=== PATIENT | female | born 1990 | race Caucasian/White ===

== ENCOUNTER 2018-06-12 22:25 | Inpatient (IN) | payer OTHER ==
[~2018-06-12] VITALS: Ht 162.6 cm; Wt 86.3 kg
[2018-06-12 22:30] VITALS: BP 117/64
[2018-06-13] MEDS ORDERED: OXYTOCIN 30U/ 0.9% NaCL 500ML 500 ML IV ONE (00:11)
[2018-06-13] MEDS ORDERED: AMPICILLIN 2 GM in SODIUM CHLORIDE 0.9% 100 ML IVPB STA (00:15)
[2018-06-13 00:28] LABS: BASOPHILS # (AUTO) 0.02 x10^3/uL (0-0.1); BASOPHILS % (AUTO) 0 % (0-1); EOSINOPHILS # (AUTO) 0.06 x10^3/uL (0-0.4); EOSINOPHILS % (AUTO) 1 % (1-7); LYMPHOCYTES # (AUTO) 1.47 x10^3/uL (1-3.4); LYMPHOCYTES % (AUTO) 15 % (22-44); MD NO; MEAN CORPUSCULAR HEMOGLOBIN 32.3 pg (27.0-34.8); MEAN CORPUSCULAR VOLUME 94.8 fL (80-100); MEAN PLATELET VOLUME 9.1 fL (7.4-10.4); MONOCYTES # (AUTO) 0.65 x10^3/uL (0.2-0.8); MONOCYTES % (AUTO) 7 % (2-9); NEUTROPHILS % (AUTO) 78 % (42-75); PLATELET COUNT 188 x10^3/uL (130-400); RED BLOOD COUNT 3.85 x10^6/uL (3.82-5.3); RED CELL DISTRIBUTION WIDTH 15.5 % (9.6-15.2)
[2018-06-13] MEDS ORDERED: FENTANYL PF 100 MCG/2ML IVPush PRN (00:30)
[2018-06-13] MEDS ORDERED: FENTANYL PF 100 MCG/2ML IV PRN (00:30)
[2018-06-13] MEDS ORDERED: PLEASE ENTER WEIGHT MC SCH (00:30)
[2018-06-13] MEDS ORDERED: LIDOCAINE/PF 1%, 30ML ONE (00:47)
[2018-06-13] MEDS ORDERED: OXYTOCIN 30U/ 0.9% NaCL 500ML 500 ML ONE ×2 (02:26→23:49)
[2018-06-13] MEDS ORDERED: OXYTOCIN 30U/ 0.9% NaCL 500ML 500 ML IV PRN (02:56)
[2018-06-13] MEDS: AMPICILLIN 1 GM in SODIUM CHLORIDE 0.9% 100 ML IVPB SCH ×4 (05:00→17:00)
[2018-06-13] MEDS: LACTATED RINGERS 1,000 ML IV SCH ×2 (06:38→08:04)
[2018-06-13] MEDS ORDERED: FENTANYL/BUPIV./NS/PF 250 ML EPIDCONT SCH ×2 (06:51→08:11)
[2018-06-13] MEDS ORDERED: TERBUTALINE 1 MG/ML, 1ML IVPush PRN (07:00)
[2018-06-13] MEDS ORDERED: ONDANSETRON 2MG/ML, 2ML IVPush PRN (07:00)
[2018-06-13 07:08] VITALS: BP 120/69
[2018-06-13] MEDS ORDERED: BUPIVACAINE 0.25% ONE ×3 (07:20→17:40)
[2018-06-13] MEDS ORDERED: FENTANYL PF 500 MCG, BUPIVACAINE/PF 0.5%, 30ML 62.5 ML in SODIUM CHLORIDE 0.9% 177.5 ML EPIDCONT SCH (07:30)
[2018-06-13] MEDS ORDERED: LACTATED RINGERS 1,000 ML IV SCH (08:11)
[2018-06-13] MEDS ORDERED: EPHEDRINE 50 MG/ML, 1ML IVPush PRN (08:30)
[2018-06-13] MEDS ORDERED: LACTATED RINGERS 1,000 ML IVBOLUS PRN (08:30)
[2018-06-13] MEDS: D5%-LACTATED RINGERS 1,000 ML IV SCH ×2 (09:21→17:08)
[2018-06-13] MEDS ORDERED: BUPIVACAINE/PF 0.5% ONE (15:33)
[2018-06-13] MEDS ORDERED: ONDANSETRON 2MG/ML, 2ML ONE (17:20)
[2018-06-13] MEDS ORDERED: CALCIUM CARBONATE 500 MG TAB.CHEW ONE (19:31)
[2018-06-13] MEDS ORDERED: NEWBORN KIT ONE (20:35)
[2018-06-13] MEDS ORDERED: SODIUM CITRATE/CITRIC ACID 30 ML UDC ONE (23:00)
[2018-06-13] MEDS ORDERED: METOCLOPRAMIDE 5 MG/ML, 2ML ONE (23:00)
[2018-06-13] MEDS: OXYTOCIN 30U/ 0.9% NaCL 500ML 500 ML IV SCH (23:53)
[2018-06-14] MEDS ORDERED: ONDANSETRON 2MG/ML, 2ML IV PRN
[2018-06-14] MEDS ORDERED: OXYcodone IR 5MG TABLET PO PRN
[2018-06-14] MEDS ORDERED: CALCIUM CARBONATE 500 MG TAB.CHEW PO PRN
[2018-06-14] MEDS ORDERED: MAGNESIUM HYDROXIDE 8%, 30ML UDC PO PRN
[2018-06-14] MEDS ORDERED: RHOGAM FROM BLOOD BANK 1 NOTE EA IM/IV ONE
[2018-06-14] MEDS ORDERED: MISOPROSTOL 200 MCG TABLET PR PRN
[2018-06-14] MEDS ORDERED: DIPH,PERTUSS(ACELL),TET VAC/PF NC IM-VACC PRN
[2018-06-14] MEDS ORDERED: OXYcodone/APAP 5/325MG TABLET ONE (00:42)
[2018-06-14] MEDS ORDERED: IBUPROFEN 600 MG TABLET ONE (00:42)
[2018-06-14] MEDS: IBUPROFEN 600 MG TABLET PO PRN ×3 (00:43→19:29)
[2018-06-14] MEDS: OXYcodone/APAP 5/325MG TABLET PO PRN ×4 (00:44→19:29)
[2018-06-14 01:50] VITALS: BP 103/66
[2018-06-14 05:00] VITALS: BP 95/59
[2018-06-14 07:16] LABS: MEAN CORPUSCULAR HEMOGLOBIN 32.2 pg (27.0-34.8); MEAN CORPUSCULAR VOLUME 94.6 fL (80-100); MEAN PLATELET VOLUME 8.8 fL (7.4-10.4); PLATELET COUNT 171 x10^3/uL (130-400); RED BLOOD COUNT 3.58 x10^6/uL (3.82-5.3); RED CELL DISTRIBUTION WIDTH 15.6 % (9.6-15.2)
[2018-06-14 07:45] VITALS: BP 91/58
[2018-06-14 08:22] LABS: MD YES
[2018-06-14 08:30] LABS: BAND#(MANUAL) 2.08 x10^3/uL; BANDS%(MANUAL) 10 % (0-7); LYMPHS% (MANUAL) 12 % (22-44); MONOS#(MANUAL) 0.42 x10^3/uL (0.3-2.7); MONOS% (MANUAL) 2 % (2-9); SEG#(MANUAL) 15.81 x10^3/uL (1.8-6.8); SEGS% (MANUAL) 76 % (42-75)
[2018-06-14 08:31] LABS: <PLATELET ESTIMATE> ADEQUATE; <PLT MORPHOLOGY> NORMAL PLT MORPH; <RBC MORPHOLOGY> NORMAL; TOXIC GRAN 1+
[2018-06-14] MEDS: PRENATAL VIT/IRON/FA 1 EACH TABLET PO SCH (09:12)
[2018-06-14] MEDS: DOCUSATE 100 MG CAPSULE PO PRN ×2 (09:12→19:29)
[2018-06-14] MEDS: OXYTOCIN 30U/ 0.9% NaCL 500ML 500 ML IV SCH ×2 (09:53→19:53)
[2018-06-14 12:10] VITALS: BP 96/61
[2018-06-14 20:00] VITALS: BP 92/56
[2018-06-15] MEDS: IBUPROFEN 600 MG TABLET PO PRN ×2 (04:46→12:47)
[2018-06-15] MEDS: OXYTOCIN 30U/ 0.9% NaCL 500ML 500 ML IV SCH (05:53)
[2018-06-15 08:45] VITALS: BP 92/63
[2018-06-15] MEDS: DOCUSATE 100 MG CAPSULE PO PRN (10:54)
[2018-06-15] MEDS: PRENATAL VIT/IRON/FA 1 EACH TABLET PO SCH (10:54)
[2018-06-15] MEDS: OXYcodone/APAP 5/325MG TABLET PO PRN (12:47)
== END 2018-06-15 15:20 | disposition home or self-care (01) | DRG 775 ==
LOC: LDOP 22:25 → LDIP 06-13 00:17 → 2NW 06-14 01:41
PROVIDERS: ADMIT Obstetrics & Gynecology; ATTEND Obstetrics & Gynecology
PROC: 10D07Z6 Extraction of Products of Conception, Vacuum, Via Natural or Artificial Opening (ICD-10-PCS; principal; 2018-06-13)
PROC: 0KQM0ZZ Repair Perineum Muscle, Open Approach (ICD-10-PCS; 2018-06-13)
PROC: 10907ZC Drainage of Amniotic Fluid, Therapeutic from Products of Conception, Via Natural or Artificial Opening (ICD-10-PCS; 2018-06-13)
PROC: 3E0R3BZ Introduction of Anesthetic Agent into Spinal Canal, Percutaneous Approach (ICD-10-PCS; 2018-06-13)
PROC: 00HU33Z Insertion of Infusion Device into Spinal Canal, Percutaneous Approach (ICD-10-PCS; 2018-06-13)
DX: O77.0 Labor and delivery complicated by meconium in amniotic fluid (principal); Z37.0 Single live birth; O70.1 Second degree perineal laceration during delivery; Z3A.40 40 weeks gestation of pregnancy; O99.824 Streptococcus B carrier state complicating childbirth; O69.81X0 Labor and delivery complicated by cord around neck, without compression, not applicable or unspecified
CPT/HCPCS: 36415; J7121; 82803; 85025; 86850; 86900; J0290; J2405; J2590; J7120

== ENCOUNTER 2019-06-18 01:14 | Inpatient (IN) | payer OTHER ==
[~2019-06-18] VITALS: Ht 162.6 cm; Wt 85.0 kg
[2019-06-18] MEDS: D5%-LACTATED RINGERS 1,000 ML IV SCH ×2 (05:35→13:35)
[2019-06-18] MEDS ORDERED: OXYTOCIN 30U/ 0.9% NaCL 500ML 500 ML IV PRN (05:35)
[2019-06-18] MEDS ORDERED: OXYTOCIN 30U/ 0.9% NaCL 500ML 500 ML IV ONE ×2 (05:35→07:32)
[2019-06-18] MEDS: LACTATED RINGERS 1,000 ML IV SCH ×4 (05:40→22:06)
[2019-06-18] MEDS ORDERED: LIDOCAINE 1%, 20ML ONE (05:58)
[2019-06-18] MEDS ORDERED: MISOPROSTOL 200 MCG TABLET ONE (05:58)
[2019-06-18] MEDS ORDERED: OXYTOCIN 30U/ 0.9% NaCL 500ML 500 ML ONE ×2 (05:58→17:55)
[2019-06-18] MEDS ORDERED: NEWBORN KIT ONE (05:58)
[2019-06-18 06:00] VITALS: BP 107/53
[2019-06-18] MEDS ORDERED: SODIUM CITRATE/CITRIC ACID 15 ML UDC PO PRN (06:00)
[2019-06-18] MEDS ORDERED: ALUMINUM/MAG/SIMETHICONE 30 ML UDC PO PRN (06:00)
[2019-06-18] MEDS ORDERED: PENICILLIN GK 5,000,000 UNITS in DEXTROSE 5% 100 ML IVPB ONE (06:00)
[2019-06-18] MEDS ORDERED: ONDANSETRON 2MG/ML, 2ML IVPush PRN (06:00)
[2019-06-18] MEDS ORDERED: FENTANYL PF 100 MCG/2ML IV PRN (06:00)
[2019-06-18] MEDS ORDERED: FENTANYL PF 100 MCG/2ML IVPush PRN (06:00)
[2019-06-18 06:02] LABS: BASOPHILS # (AUTO) 0.06 x10^3/uL (0-0.1); BASOPHILS % (AUTO) 1 % (0-1); EOSINOPHILS # (AUTO) 0.05 x10^3/uL (0-0.4); EOSINOPHILS % (AUTO) 1 % (1-7); LYMPHOCYTES # (AUTO) 1.69 x10^3/uL (1-3.4); LYMPHOCYTES % (AUTO) 24 % (22-44); MD NO; MEAN CORPUSCULAR HEMOGLOBIN 30.6 pg (27.0-34.8); MEAN CORPUSCULAR HGB CONC 32.9 g/dL (32.4-35.8); MEAN CORPUSCULAR VOLUME 92.9 fL (80-100); MEAN PLATELET VOLUME 8.5 fL (7.4-10.4); MONOCYTES # (AUTO) 0.51 x10^3/uL (0.2-0.8); MONOCYTES % (AUTO) 7 % (2-9); NEUTROPHILS # (AUTO) 4.72 x10^3/uL (1.8-6.8); NEUTROPHILS % (AUTO) 67 % (42-75); PLATELET COUNT 205 x10^3/uL (130-400); RED BLOOD COUNT 3.44 x10^6/uL (3.82-5.3); RED CELL DISTRIBUTION WIDTH 15.6 % (9.6-15.2)
[2019-06-18] MEDS ORDERED: FENTANYL/BUPIV./NS/PF 250 ML EPIDCONT ONE (07:30)
[2019-06-18] MEDS: PENICILLIN GK 2,500,000 UNITS in DEXTROSE 5% 100 ML IVPB SCH ×4 (10:20→18:00)
[2019-06-18] MEDS ORDERED: BUPIVACAINE 0.25% ONE (13:37)
[2019-06-18] MEDS ORDERED: LIDOCAINE/PF 1.5%-EPI 1:200K, 30ML ONE (13:50)
[2019-06-18] MEDS ORDERED: FENTANYL/BUPIV./NS/PF 250 ML EPIDCONT SCH (14:06)
[2019-06-18] MEDS ORDERED: LACTATED RINGERS 1,000 ML IVBOLUS PRN (14:30)
[2019-06-18] MEDS ORDERED: FENTANYL PF 500 MCG, BUPIVACAINE/PF 0.5%, 30ML 62.5 ML in SODIUM CHLORIDE 0.9% 177.5 ML EPIDCONT SCH (14:30)
[2019-06-18] MEDS ORDERED: EPHEDRINE 50 MG/ML, 1ML IVPush PRN (14:30)
[2019-06-18] MEDS: OXYTOCIN 30U/ 0.9% NaCL 500ML 500 ML IV SCH (16:57)
[2019-06-18] MEDS ORDERED: ONDANSETRON 2MG/ML, 2ML IV PRN (17:00)
[2019-06-18] MEDS ORDERED: OXYcodone/APAP 5/325MG TABLET PO PRN (17:00)
[2019-06-18] MEDS ORDERED: BISACODYL 10 MG SUPP PR PRN (17:00)
[2019-06-18] MEDS ORDERED: ACETAMINOPHEN 325 MG TABLET PO PRN ×2 (17:00)
[2019-06-18] MEDS ORDERED: METHYLERGONOVINE 0.2 MG/ML IM PRN (17:00)
[2019-06-18] MEDS ORDERED: MISOPROSTOL 200 MCG TABLET PR PRN (17:00)
[2019-06-18] MEDS ORDERED: CARBOPROST TROMETHAMINE 250 MCG/ML, 1ML IM PRN (17:00)
[2019-06-18] MEDS ORDERED: GLYCERIN ADULT SUPP PR PRN (17:00)
[2019-06-18] MEDS ORDERED: METOCLOPRAMIDE 5 MG/ML, 2ML IV PRN (17:00)
[2019-06-18] MEDS ORDERED: OXYcodone/APAP 5/325MG TABLET ONE (18:36)
[2019-06-18] MEDS ORDERED: IBUPROFEN 600 MG TABLET ONE (18:36)
[2019-06-18] MEDS: IBUPROFEN 600 MG TABLET PO PRN (18:38)
[2019-06-18 20:45] VITALS: BP 95/60
[2019-06-19 01:00] VITALS: BP 99/63
[2019-06-19 01:51] LABS: BASOPHILS % (AUTO) 0 % (0-1); EOSINOPHILS # (AUTO) 0.04 x10^3/uL (0-0.4); EOSINOPHILS % (AUTO) 0 % (1-7); LYMPHOCYTES # (AUTO) 1.57 x10^3/uL (1-3.4); LYMPHOCYTES % (AUTO) 14 % (22-44); MD NO; MEAN CORPUSCULAR HEMOGLOBIN 31.8 pg (27.0-34.8); MEAN CORPUSCULAR VOLUME 93.4 fL (80-100); MEAN PLATELET VOLUME 8.6 fL (7.4-10.4); MONOCYTES # (AUTO) 0.34 x10^3/uL (0.2-0.8); MONOCYTES % (AUTO) 3 % (2-9); NEUTROPHILS # (AUTO) 9.07 x10^3/uL (1.8-6.8); NEUTROPHILS % (AUTO) 82 % (42-75); PLATELET COUNT 200 x10^3/uL (130-400); RED BLOOD COUNT 3.16 x10^6/uL (3.82-5.3); RED CELL DISTRIBUTION WIDTH 15.4 % (9.6-15.2)
[2019-06-19] MEDS: IBUPROFEN 600 MG TABLET PO PRN ×3 (02:00→21:41)
[2019-06-19] MEDS: OXYcodone/APAP 5/325MG TABLET PO PRN ×4 (02:00→21:41)
[2019-06-19] MEDS: OXYTOCIN 30U/ 0.9% NaCL 500ML 500 ML IV SCH ×2 (02:57→12:57)
[2019-06-19 05:00] VITALS: BP 97/64
[2019-06-19] MEDS: LACTATED RINGERS 1,000 ML IV SCH ×2 (06:06→14:06)
[2019-06-19 07:45] VITALS: BP 112/69
[2019-06-19] MEDS: FERROUS SULFATE 325 MG TABLET PO SCH (08:37)
[2019-06-19] MEDS: PRENATAL VIT/IRON/FA 1 EACH TABLET PO SCH (08:38)
[2019-06-19] MEDS: DOCUSATE 100 MG CAPSULE PO PRN (08:38)
[2019-06-19] MEDS ORDERED: ONDANSETRON ODT 4 MG ONE (11:21)
[2019-06-19] MEDS ORDERED: ONDANSETRON 4 MG TABLET PO PRN (11:30)
[2019-06-19 12:00] VITALS: BP 116/72
[2019-06-19 16:00] VITALS: BP 110/80
[2019-06-19 20:00] VITALS: BP 144/80
[2019-06-20] MEDS: IBUPROFEN 600 MG TABLET PO PRN (04:12)
[2019-06-20 08:06] VITALS: BP 96/63
[2019-06-20] MEDS: OXYcodone/APAP 5/325MG TABLET PO PRN (09:35)
[2019-06-20] MEDS: DOCUSATE 100 MG CAPSULE PO PRN (09:35)
[2019-06-20] MEDS: PRENATAL VIT/IRON/FA 1 EACH TABLET PO SCH (09:36)
[2019-06-20] MEDS: FERROUS SULFATE 325 MG TABLET PO SCH (09:36)
[2019-06-20] MEDS ORDERED: HYDR-3240 PO ×2 (12:53→12:54)
[2019-06-20] MEDS ORDERED: IBUP-1222 PO (12:54)
== END 2019-06-20 14:50 | disposition home or self-care (01) | DRG 807 ==
LOC: LDIP 05:23 → 2NW 20:25
PROVIDERS: ADMIT Obstetrics & Gynecology; ATTEND Obstetrics & Gynecology
PROC: 10E0XZZ Delivery of Products of Conception, External Approach (ICD-10-PCS; principal; 2019-06-18)
PROC: 0KQM0ZZ Repair Perineum Muscle, Open Approach (ICD-10-PCS; 2019-06-18)
PROC: 3E0R3BZ Introduction of Anesthetic Agent into Spinal Canal, Percutaneous Approach (ICD-10-PCS; 2019-06-18)
PROC: 00HU33Z Insertion of Infusion Device into Spinal Canal, Percutaneous Approach (ICD-10-PCS; 2019-06-18)
DX: O24.420 Gestational diabetes mellitus in childbirth, diet controlled (principal); Z37.0 Single live birth; O99.824 Streptococcus B carrier state complicating childbirth; O70.1 Second degree perineal laceration during delivery; O69.1XX0 Labor and delivery complicated by cord around neck, with compression, not applicable or unspecified; O99.02 Anemia complicating childbirth; D64.9 Anemia, unspecified; H91.90 Unspecified hearing loss, unspecified ear; Z3A.39 39 weeks gestation of pregnancy
CPT/HCPCS: 36415; J3490; 82947; 82962; 85025; 86850; 86900; G0378; J2540; Q0162; J2590; J3010; J7120